=== PATIENT | female | born 1980 | race Caucasian/White ===

== ENCOUNTER 2017-06-08 07:59 | Day surgery (SDC) | payer MEDICAID ==
[2017-06-08 08:28] LABS: Hemoglobin 10.3 gm/dL (12.5-16.0); Mean Cell Volume 82.9 fl (78-100); Mean Corpuscular Hemoglobin 26.7 pg (27-31); Mean Corpuscular Hgb Conc 32.2 g/dl (32-36); Mean Platelet Volume 9.8 fl (6.0-9.5); Neutrophil # 7.1 K/mm3 (1.3-6.0); Neutrophil % 67.3 % (42-75.0); Platelet Count 253 K/mm3 (150-450); Red Blood Count 3.86 M/mm3 (4.2-5.4); White Blood Count 10.5 K/mm3 (4.0-10.5)
[2017-06-08] MEDS ORDERED: RINGER'S SOLUTION,LACTATED 1,000 ML IV ONE (09:00)
[2017-06-08] MEDS ORDERED: BUPIVACAINE HCL/EPINEPHRINE 50 ML VIAL IJ ONE ×2 (09:25)
[2017-06-08] MEDS ORDERED: FERRIC SUBSULFATE 8 ML VIAL TP ONE (10:20)
[2017-06-08] MEDS ORDERED: oxyCODONE HCL/ACETAMINOPHEN 1 TAB TABLET PO PRN (10:22)
[2017-06-08] MEDS ORDERED: IBUPROFEN 600 MG TABLET PO PRN (10:22)
--- NOTE | 2017-06-08 10:45 | OR ---
Operative Report - Dictated Report Narrative: Operative Report 06/08/2017 Laparoscopic Bilateral Salpingectomy Preoperative Diagnosis: Desires permanent sterilization Postoperative Diagnosis: Desires permanent sterilization Procedure: Laparoscopic Bilateral Salpingectomy Surgeon: Nancy Reyes M.D. Anesthesia: Alexandre Torres SIZER MACHINE, general anesthesia with endotracheal tube Findings: Normal-appearing uterus, tubes, and ovaries. Normal-appearing liver edge. Appendix not clearly visualized. Fluids: 750 ml EBL: Minimal Drains: Straight cath prior to procedure, drained clear yellow urine Pathology: Bilateral fallopian tubes Complications: None Condition: Stable Procedure: The patient was taken to the operating room with IV fluids running. General anesthesia was induced. She was placed in the dorsal lithotomy position. She was prepped and draped in the normal sterile fashion. A speculum was placed into the vagina. The anterior lip of the cervix was grasped with a single- tooth tenaculum. A Tysdo uterine manipulator was inserted into the endometrial cavity. The tenaculum was removed. The bladder was drained with a catheter. Clear yellow urine was drained. The speculum was removed from the vagina. Attention was then turned to the abdomen. The umbilicus was injected with 0.5% Marcaine with epinephrine. A vertical 12 mm skin incision was made in the umbilicus. Sharp dissection was continued to the fascia. A vertical fascial incision was made with the scalpel. Continued sharp and blunt dissection was performed using Metzenbaum scissors. The peritoneum was identified and entered sharply. 0 Vicryl anchor stitches were placed in the fascia to anchor the Thomas trocar as it was placed into the abdomen. The abdomen was insufflated with CO2 to a pressure of 15 mmHg. The pelvis was surveyed. Attention was turned to the left lower quadrant. The inferior epigastric artery and vein were visualized laparoscopically and the site of the trocar was placed in the left lower quadrant to avoid these vessels. The area was injected with local anesthetic and a 5 mm skin incision was made with the scalpel. A 5 mm trocar was placed in the left lower quadrant under direct visualization. The uterus was grossly normal in appearance. The right tube and ovary were inspected and were grossly normal in appearance. The left tube and ovary were inspected and were grossly normal in appearance. The right fallopian tube was identified and was grasped and elevated. Thunderbeat was used to cauterize and transect from the IP ligament along the mesosalpinx to the cornual angle. This was repeated on the left fallopian tube. The abdomen was desufflated through the trocars. The trocar was removed. The fascial 0 Vicryl stitches were used to close the fascial incision. The site was hemostatic. The skin incision was reapproximated using 4-0 Monocryl for excellent hemostasis and approximation. Attention was then turned to the vagina. Side-arm speculum was placed into the vagina. The Tysdo uterine manipulator was removed from the cervix. Sites were hemostatic. The patient tolerated the procedure well. Sponge, needle, and instruments counts were correct 2. She is taken to the recovery room in stable condition.
[2017-06-08] MEDS: RINGER'S SOLUTION,LACTATED 1,000 ML IV PRN ×2 (11:20→14:00)
[2017-06-08 14:03] VITALS: BP 124/68
== END 2017-06-08 08:00 | disposition home or self-care (01) ==
LOC: AMB 07:59
PROVIDERS: ATTEND Obstetrics & Gynecology
PROC: 0UT74ZZ Resection of Bilateral Fallopian Tubes, Percutaneous Endoscopic Approach (ICD-10-PCS; principal; 2017-06-08 09:30)
DX: Z30.2 Encounter for sterilization (principal); E11.9 Type 2 diabetes mellitus without complications; E78.5 Hyperlipidemia, unspecified; K21.9 Gastro-esophageal reflux disease without esophagitis; Z87.891 Personal history of nicotine dependence; Z68.39 Body mass index [BMI] 39.0-39.9, adult

== ENCOUNTER 2017-09-13 12:29 | Emergency (ER) | payer MEDICAID ==
[2017-09-13 12:50] VITALS: BP 123/86
--- NOTE | 2017-09-13 13:14 | ERNOTE ---
ENT HPI Date of Service: 09/13/17 Presenting Symptoms: dental pain Time Seen by Provider: 09/13/17 12:58 Source: patient, RN notes reviewed Exam Limitations: no limitations - Immun/Allergies/Home Medications Immunizations: IMMUNIZATION HX Immunizations Up to Date Yes History of Influenza Vaccine No Hx Pneumococcal Vaccination No Allergies/Adverse Reactions: Allergies Allergy/AdvReac Type Severity Reaction Status Date / Time dextromethorphan HBr Allergy Intermediate HIVES, Verified 09/13/17 12:50 [From Tylenol Cold Head BREATHING Congestion] TROUBLE guaifenesin Allergy Intermediate HIVES, Verified 09/13/17 12:50 [From Tylenol Cold Head BREATHING Congestion] TROUBLE phenylephrine HCl Allergy Intermediate HIVES, Verified 09/13/17 12:50 [From Tylenol Cold Head BREATHING Congestion] TROUBLE Home Medications: HOME MEDICATIONS Omeprazole 40 mg PO DAILY 06/01/17 [Last Taken Unknown] metFORMIN HCL [Glucophage] 500 mg PO BIDWM 06/01/17 [Last Taken Unknown] HYDROcodone/ACETAMINOPHEN [Aiken 5-325] 1 - 2 tab PO Q6H PRN #12 tab 09/13/17 [ Last Taken Unknown] Ibuprofen [Motrin] 600 mg PO Q6H PRN #40 tab 09/13/17 [Last Taken Unknown] Penicillin V Potassium [Pen-Vee K] 500 mg PO Q8H #30 tab 09/13/17 [Last Taken Unknown] - History of Present Illness Narrative: Deann is a 37-year-old female who presents to the emergency department for dental pain. She reports breaking her right lower posterior molar approximately a month ago. Last night, she ate a bunch of Tootsie Roll's and experienced increased pain. This is persisted today despite taking ibuprofen. She does not have a dentist and has not seen one for some time. She reports that she does not like going to the dentist. She denies fevers or chills but does report nausea. She states that her pain is radiating from the tooth throughout the right side of her face. ENT Location: Present: dental Prearrival Treatment: Present: over the counter meds Prior Treament: Reports: similar symptoms before. Denies: recently seen, currently on antibiotics Review of Systems - Review of Systems Constitutional: Absent: recent illness, fever, chills EYE: Absent: eye pain, eye discharge ENT: Present: ear pain. Absent: nose congestion, sore throat Respiratory: Absent: shortness of breath, cough Cardiology: Present: no symptoms reported Gastrointestinal/Abdominal: Present: nausea. Absent: abdominal pain Genitourinary: Present: no symptoms reported Musculoskeletal: Absent: back pain, neck pain Skin: Absent: rash, lesions, lumps Neurological: Present: headache. Absent: dizziness/light-headedness Endocrine: Present: no symptoms reported Hematologic/Lymphatic: Absent: easy bruising, easy bleeding Psych: Present: no symptoms reported - Patient's Past Medical History Patient History - Medical: Diabetes Type 2, GERD, Headache, Kidney stone, UTI'S Patient History - Cardiac/Respiratory: Bronchitis, Hyperlipidemia Patient History - Cancer: No Hx of Cancer Patient History - Surgical Procedures: Cholecystectomy, Tubal Ligation Patient History - Other: None - Family History Mother Family History - Medical: History Unknown Family History - Cardiac/Respiratory: History Unknown Family History - Cancer: History Unknown Father Family History - Medical: History Unknown Family History - Cardiac/Respiratory: History Unknown Family History - Cancer: History Unknown - Social History Living Situations: home Abuse History: No History of abuse Psych History: No pertinent hx Smoking Status: Never smoker Have you smoked in the past 12 months: No Alcohol Use: none Drug Use: none - Immunizations Immunizations Up to Date: Yes Hx Pneumococcal Vaccination: No History of Influenza Vaccine: No Physical Exam - Physical Exam General Appearance: Present: alert, obese, other - Pleasant but appears uncomfortable, holding right jaw Head Exam: Present: tenderness - Right lower mandibular region. Absent: swelling Eye Exam: Normal inspection: bilateral Ears, Nose, Throat: Present: normal pharynx, other - #32 fractured with mild surrounding gingival inflammation. Absent: abnormal TM (R), abnormal TM (L), nasal congestion, dry mucous membranes Neck: Present: normal inspection, nontender, supple Respiratory: Present: no respiratory distress, normal breath sounds, no accessory muscle use, lungs clear Cardiovascular/Chest: Present: regular rate, rhythm, no murmur Extremity Exam: Present: normal inspection, normal range of motion Neurological Exam: Present: alert, oriented, normal mood/affect, no motor/ sensory deficits Skin Exam: Present: normal color, warm/dry ED Progress - Vital Signs Patient's Vital Signs:: I have reviewed the patient's vital signs. Vital Signs: Vital Signs 09/13/17 12:47 Temperature 36.9 C Pulse Rate 77 Respiratory 14 Rate Blood Pressure 123/86 O2 Sat by Pulse 99 Oximetry - Progress/Reassessment Chief Complaint: Dental Problem Progress:: Unchanged Departure Clinical Impression: Pain due to dental caries - Departure Disposition: Home Follow Up Needed Condition: Good Instructions: Dental Care and Dentist Visits, Dental Caries, Form - Excuse from Work, School, or Physical Activity Additional Instructions: See a dentist MARY ELLEN Referrals: Mar Tadeo FNP [Primary Care Provider] - Prescriptions: HYDROcodone/ACETAMINOPHEN [Aiken 5-325] 1 - 2 tab PO Q6H PRN #12 tab PRN Reason: Pain Ibuprofen [Motrin] 600 mg PO Q6H PRN #40 tab PRN Reason: Pain Penicillin V Potassium [Pen-Vee K] 500 mg PO Q8H #30 tab
== END 2017-09-13 13:20 | disposition home or self-care (01) ==
LOC: ER 12:29
DX: K02.9 Dental caries, unspecified (principal); E11.9 Type 2 diabetes mellitus without complications